=== PATIENT | female | born 1990 | race Caucasian/White ===

== ENCOUNTER 2018-03-11 23:01 | Emergency (ER) | payer MEDICAID, SELFPAY ==
[~2018-03-11] VITALS: Ht 165.1 cm; Wt 73.0 kg
[2018-03-11 23:02] VITALS: BP 114/84
[2018-03-11] MEDS ORDERED: MAALOX/HYOSCYAMINE/LIDOCAINE 45 ML BTL ONE (23:24)
[2018-03-11] MEDS ORDERED: ONDANSETRON ODT 4 MG ONE (23:24)
[2018-03-11] MEDS ORDERED: FAMOTIDINE 20 MG TABLET ONE (23:24)
[2018-03-11] MEDS ORDERED: MAALOX/HYOSCYAMINE/LIDOCAINE 45 ML BTL PO ONE (23:30)
[2018-03-11] MEDS ORDERED: FAMOTIDINE 20 MG TABLET PO ONE (23:30)
[2018-03-11] MEDS ORDERED: ONDANSETRON ODT 4 MG PO ONE (23:30)
== END 2018-03-11 23:58 | disposition home or self-care (01) ==
LOC: ED 23:52
DX: K29.20 Alcoholic gastritis without bleeding (principal)
CPT/HCPCS: 93005; 99284; Q0162